=== PATIENT | female | born 1990 | race African-American/Black ===

== ENCOUNTER 2017-02-18 16:48 | Emergency (ER) | payer SELFPAY ==
[2017-02-18] MEDS ORDERED: PROMETHAZINE HCL 25 MG TABLET PO ONE (16:59)
[2017-02-18] MEDS ORDERED: ACETAMINOPHEN 325 MG TABLET PO ONE (17:00)
--- NOTE | 2017-02-18 17:01 | ER Document Report ---
ED Medical Screen (RME) - General Stated Complaint: POSSIBLE FLU LIKE SYMPTOMS Mode of Arrival: Ambulatory Information source: Patient Notes: Presents to the emergency department with multiple symptoms. Reports flulike symptoms since Monday. Reports sore throat neck and back pain. Reports fever , diarrhea vomiting. Reports stuffy nose. No Tylenol since yesterday. I have greeted and performed a rapid initial assessment of this patient. A comprehensive ED assessment and evaluation of the patient, analysis of test results and completion of the medical decision making process will be conducted by additional ED providers. TRAVEL OUTSIDE OF THE [place] IN LAST 30 DAYS: No - Related Data Allergies/Adverse Reactions: No Known Allergies Allergy (Verified 05/08/16 05:49) Past Medical History Renal/ Medical History: Denies: Hx Peritoneal Dialysis
[2017-02-18 17:43] LABS: APPEARANCE,URINE SLIGHTLY-CLOUDY; BILIRUBIN,URINE NEGATIVE (NEGATIVE); GLUCOSE, URINE NEGATIVE (NEGATIVE); KETONES,URINE TRACE mg/dL (NEGATIVE); LEUKOCYTE ESTERASE,URINE LARGE (NEGATIVE); NITRITE,URINE NEGATIVE (NEGATIVE); PROTEIN,URINE NEGATIVE (NEGATIVE); URINE SPECIFIC GRAVITY 1.008
[2017-02-18] MEDS ORDERED: CEPHALEXIN 500 MG CAPSULE PO ONE (19:45)
[2017-02-18] MEDS ORDERED: DEXAMETHASONE SOD PHOS INJ 10 MG/1 ML VIAL IM ONE (19:45)
--- NOTE | 2017-02-18 19:51 | ER Document Report ---
ED General - General Chief Complaint: Fever Stated Complaint: POSSIBLE FLU LIKE SYMPTOMS Time seen by provider: 19:46 Mode of Arrival: Ambulatory Notes: Patient is a 26-year-old female that comes emergency department for chief complaint of 5 days of sick symptoms, she states her worst symptom is her sore throat with pain in the front of her neck, she is also running fevers, she states that she threw up and she has been congested, she states she has aches in her body including in her back. She denies current headache. She denies any notable cough. Patient denies any daily medications or any medical history other than frequent throat infections. TRAVEL OUTSIDE OF THE [place] IN LAST 30 DAYS: No - Related Data Allergies/Adverse Reactions: No Known Allergies Allergy (Verified 02/18/17 17:00) Past Medical History - General Information source: Patient - Social History Smoking Status: Never Smoker Frequency of alcohol use: None Drug Abuse: None Lives with: Family Family History: Reviewed & Not Pertinent - Medical History Medical History: Negative Renal/ Medical History: Denies: Hx Peritoneal Dialysis Surgical Hx: Negative - Immunizations Immunizations up to date: Yes Hx Diphtheria, Pertussis, Tetanus Vaccination: Yes Review of Systems - Review of Systems Constitutional: See HPI EENT: See HPI Cardiovascular: No symptoms reported Respiratory: No symptoms reported Gastrointestinal: See HPI Genitourinary: No symptoms reported Female Genitourinary: No symptoms reported Musculoskeletal: See HPI Skin: No symptoms reported Hematologic/Lymphatic: No symptoms reported Neurological/Psychological: No symptoms reported Physical Exam - Vital signs Vitals: Pulse Resp Pulse Ox 78 18 100 02/18/17 20:29 02/18/17 20:29 02/18/17 20:29 Interpretation: Normal - General General appearance: Appears well In distress: None - HEENT Head: Normocephalic, Atraumatic Eyes: Normal Conjunctiva: Normal Extraocular movements intact: Yes Eyelashes: Normal Pupils: PERRL Ears: Normal External canal: Normal Tympanic membrane: Normal Sinus: Normal Nasal: Normal Mouth/Lips: Normal Mucous membranes: Normal Pharynx: Erythema, Exudate, Tonsillar hypertrophy. No: Peritonsillar abscess, Uvular edema Neck: Anterior cervical chain - Bilateral - Respiratory Respiratory status: No respiratory distress Chest status: Nontender Breath sounds: Normal Chest palpation: Normal - Cardiovascular Rhythm: Regular Heart sounds: Normal auscultation Murmur: No - Abdominal Inspection: Normal Distension: No distension Bowel sounds: Normal Tenderness: Nontender. No: Tender, Guarding Organomegaly: No organomegaly - Back Back: Normal. No: CVA tenderness - Extremities General upper extremity: Normal inspection, Nontender, Normal color, Normal ROM , Normal temperature General lower extremity: Normal inspection, Nontender, Normal color, Normal ROM , Normal temperature, Normal weight bearing. No: Ashleigh's sign - Neurological Neuro grossly intact: Yes Cognition: Normal Orientation: AAOx4 [place] Coma Scale Eye Opening: Spontaneous [place] Coma Scale Verbal: Oriented [place]is[place] Coma Scale Motor: Obeys Commands [place] Coma Scale Total: 15 Speech: Normal Motor strength normal: LUE, RUE, LLE, RLE Sensory: Normal - Psychological Associated symptoms: Normal affect, Normal mood - Skin Skin Temperature: Warm Skin Moisture: Dry Skin Color: Normal Course - Re-evaluation Re-evalutation: Patient with exudative pharyngitis, anterior cervical adenopathy, no evidence of peritonsillar abscess or airway obstruction. Shows large leukocyte esterase with white blood cells and some squamous of the areas with no nitrates. Patient does not have any urinary symptoms. Patient treated with Decadron, Keflex, discussed with her that she might have mono because of negative strep, culture pending. Influenza negative. Discussed treatments, follow-up, return precautions. Patient states understanding and agreement. - Vital Signs Vital signs: Temp Pulse Resp BP Pulse Ox 78 18 100 02/18/17 20:29 02/18/17 20:29 02/18/17 20:29 - Laboratory Laboratory results interpreted by me: 02/18/17 17:10 Urine Ketones TRACE H Urine Blood SMALL H Urine Urobilinogen 2.0 H Ur Leukocyte Esterase LARGE H Discharge - Discharge Clinical Impression: Exudative pharyngitis, Anterior cervical adenopathy Fever Qualifiers: Fever type: unspecified Qualified Code(s): R50.9 - Fever, unspecified Condition: Stable Disposition: HOME, SELF-CARE Additional Instructions: The flu and strep tests are negative, your exam is consistent with a throat infection and swollen lymph nodes, your urine also indicates that infection. Take the Keflex antibiotic as directed for both your throat for possible strep infection and for your urinary tract infection. It is possible you have mono, you have been given dexamethasone to help with the pain of the lymph nodes and tonsils, continue to take Tylenol or ibuprofen for fever, rest, this takes time to resolve and it is a virus. Follow-up with primary care referral. Return to the emergency department for any concerning symptoms including worsening swelling, difficulty breathing, or any other concerning symptoms. Prescriptions: Cephalexin Monohydrate [Keflex 500 mg Capsule] 500 mg PO BID #20 capsule
== END 2017-02-18 20:10 | disposition home or self-care (01) ==
LOC: ER 16:48
DX: J02.9 Acute pharyngitis, unspecified (principal); R59.9 Enlarged lymph nodes, unspecified; R50.9 Fever, unspecified
CPT/HCPCS: 99283; 96372; 87070; 87880; 81025; 87077; 81001; 87804; J1100